=== PATIENT | female | born 1970 | race Caucasian/White ===

== ENCOUNTER 2017-01-02 17:46 | Emergency (ER) | payer BC ==
--- NOTE | 2017-01-02 17:56 | UC ---
Lower Extremity/Ankle HPI - HPI Summary HPI Summary: 46 year old female presents with lateral left ankle pain. - History of Current Complaint Stated Complaint: LEFT ANKLE PAIN Time Seen by Provider: 01/02/17 17:55 Hx Last Menstrual Period: iud - spots on occas - Allergies/Home Medications Allergies/Adverse Reactions: Allergies Allergy/AdvReac Type Severity Reaction Status Date / Time Penicillins Allergy Severe Rash Verified 01/02/17 18:01 Home Medications: Home Medications Atorvastatin* [Lipitor 10 MG*] 10 mg PO BEDTIME 01/02/17 [History Confirmed ] Ibuprofen [Ibuprofen 200 MG] 400 mg PO Q6H PRN 01/02/17 [History Confirmed 01/02] PMH/Surg Hx/FS Hx/Imm Hx - Surgical History Surgical History: Yes Surgery Procedure, Year, and Place: RIGHT FOOT SURGERY TWICE - Family History Known Family History: Positive: None - Social History Alcohol Use: Rare Substance Use Type: None Smoking Status (MU): Never Smoked Tobacco Review of Systems Constitutional: Negative Skin: Negative Eyes: Negative ENT: Negative Respiratory: Negative Cardiovascular: Negative Gastrointestinal: Negative Genitourinary: Negative Motor: Negative Neurovascular: Negative Musculoskeletal: Arthralgia, Myalgia, Other: - left ankle pain Neurological: Negative Psychological: Negative All Other Systems Reviewed And Are Negative: Yes Physical Exam Triage Information Reviewed: Yes Eye Exam: Normal ENT Exam: Normal Dental Exam: Normal Neck exam: Normal Neck: Positive: 1 Respiratory Exam: Normal Cardiovascular Exam: Normal Abdominal Exam: Normal Musculoskeletal: Positive: Edema @, Other: - left ankle pain/swelling Neurological Exam: Normal Psychological Exam: Normal Skin Exam: Normal Lower Extremity Course/Dx - Differential Dx/Diagnosis Provider Diagnoses: left lateral ankle pain Discharge - Discharge Plan Condition: Stable Disposition: HOME Prescriptions: Methylprednisolone [Medrol Dosepak 4 MG*] 4 mg PO .SEE SHYAM INSTRUCTION #1 packet Patient Education Materials: Swollen Joint (ED), Arthralgia (ED), Ankle Sprain (ED) Referrals: Trey Damon MD [Primary Care Provider] - If Needed
[2017-01-02 18:01] VITALS: BP 123/67
--- NOTE | 2017-01-02 18:43 | RAD ---
HISTORY: Left lateral ankle pain COMPARISONS: None VIEWS: 3, Frontal, lateral, and oblique views of the left ankle FINDINGS: BONE DENSITY: Normal. BONES: There is no displaced fracture. There is a small posterior calcaneal enthesophyte. There is a small enthesophyte of the anterior talus. JOINTS: There is no arthropathy. ALIGNMENT: There is no dislocation. SOFT TISSUES: Unremarkable. OTHER FINDINGS: None. IMPRESSION: NO ACUTE OSSEOUS INJURY. IF SYMPTOMS PERSIST, RECOMMEND REPEAT IMAGING.
== END 2017-01-02 18:58 | disposition home or self-care (01) ==
LOC: UCCORT 17:46
DX: M25.572 Pain in left ankle and joints of left foot (principal); Z88.0 Allergy status to penicillin
CPT/HCPCS: 99212; G0463

== ENCOUNTER 2018-05-10 07:54 | Emergency (ER) | payer BC, OTHER ==
--- OUTSIDE RECORDS SUMMARY | 2018-05-10 08:02 | XMS REPORT | Continuity of Care Document ---
:1970 External Reference #:[id number] Author Name Trey Damon M.D. Address [address] [place] [address] Care Team Providers Name Role Phone Trey Damon M.D. Primary Care Physician Unavailable Payers Type Date Identification Numbers Payment Provider Subscriber Effective: 2016 Policy Number: [id number] SHAI CLANCY- Carlos Medina PayID: [id number] [address] [address] [place] [address] Effective: 2011 Policy Number: [id number] SHAI CLANCY- Carlos Medina Expires: 2016 PayID: [id number] [address] [address] [place] [address] Advance Directives Description No Information Available Problems Date Description Provider Status Onset: 10/02/2011 Hyperlipidemia Neto Garcia Active Onset: 10/02/2011 Allergic rhinitis Neto Garcia Active Onset: 10/02/2011 Pure hypercholesterolemia Trey Damon M.D. 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[employer] ETOH Use Rarely consumes alcohol Tobacco Use Reviewed: 01/22/16 Patient has never smoked Smoking Status Reviewed: 04/29/18 Patient has never smoked Exercise Type/Frequency Exercises sporadically Allergies, Adverse Reactions, Alerts Date Description Reaction Status Severity Comments 10/02/2011 Penicillins Active 10/02/2011 Cats Active 10/02/2011 Dogs Active 10/02/2011 Seasonal Active Medications Medication Date Status Form Strength Qnty SIG Indications Ordering Provider Contrave 04/29/ Active Tablets ER 8-90mg 120ta 2 twice a E66.09 Trey 2018 12HR bs day ( stop [place] phentermine os, M.D. ) Flonase 04/01/ Active Suspension 50mcg/Act 9.900 2 puffs each Trey Allergy 2018 ml nare every [place] Relief in the os, M.D. morning Phentermine 04/01/ Active Tablets 37.5mg 30tab 1 by mouth Trey HCL 2018 s every day, [place] 1/2 hour os, M.D. before the meal or 2 hours after the meal Inderal LA 01/11/ Active Caps ER 24HR 80mg 90cap take 1 G43.909 Trey 2018 s capsule by Castellan mouth once os, M.D. daily with food G43.909 Lipitor 04/19/2015 Active Tablets 10mg 90tabs 1 by mouth E78.5 Trey every day Damon, at supper M.D. Proair HFA 03/01/2015 Active Aerosol 108(9 1units 2 puffs Trey 0Base every 4 Damon, ) hours as M.D. mcg/A needed ct Levocetirizine 01/07/2013 Active Tablets 5mg 90tabs take one J31.0 Trey Dihydrochloride tablet by Damon, mouth one M.D. time daily Contrave 03/11/2017 Hx Tablets 8-90m 120tabs Stop This E66.09 Trey - ER 12HR g Med Damon, 04/01/2018 M.D. Phentermine HCL 02/05/2017 Hx Capsules 37.5m 30caps 1 daily Z68.30 Trey - g before Damon, 03/11/2017 breakfast M.D. or 1-2 hours after breakfast Contrave 07/25/2015 Hx Tablets 8-90m 120tabs 2 twice a E66.09 Trey - ER 12HR g day Damon, 02/05/2017 M.D. Symbicort 04/05/2015 Hx Aerosol 160-4 1units 1 puff J45.90 Trey - .5mcg twice a 9 Damon, 05/06/2016 /Act day M.D. Inderal LA 03/15/2015 Hx Caps ER 120mg 30caps 1 daily G43.90 Trey - 24HR 9 [facility], 08/06/2016 M.D. Alpha PD 03/01/2015 Hx Device 1units use daily J45.90 Trey - in in the [address] [place] [address], 05/06/2016 morning as M.D. directed and chart Niacin ER 10/03/2013 Hx Tablets 500mg 90tabs 1 at J45.90 Trey (Antihyperlipidem - ER bedtime ( [address] [place] [address], ) 04/19/2015 with 325 M.D. mg aspirin ) Flaxseed Oil 10/03/2013 Hx Capsules 1000m 90caps 1 daily at J45.90 Trey - g supper 9 [facility], 04/19/2015 M.D. Inderal LA 08/04/2013 Hx Caps ER 80mg 90caps take 1 784.0 Trey - 24HR capsule by Nelson, 03/15/2015 mouth once M.D. daily with food G43.909 Atorvastatin 01/07/2013 - Hx Tablets 10mg 90tabs 1 q od 272.4 Trey Calcium 08/04/2013 Kd Damon Inderal LA 01/07/2013 - Hx Caps ER 24HR 60mg 90caps 1 po qd 784.0 Trey 08/04/2013 Kd Damon Nasonex 01/07/2013 - Hx Suspension 50mcg 3units use 2 J30.9 Trey 04/01/2018 /Act sprays in [facility], each M.D. nostril once daily Ibuprofen 03/12/2012 - Hx Tablets 800mg 45tabs Take One 726.19 Trey 10/03/2013 Tablet By Nelson, Mouth Three M.D. Times Daily Anusol-HC 12/11/2011 - Hx Suppository 25mg 90units 1 after bm 455.6 Trey 10/03/2013 and at Kd Damon Triamcinolone 12/11/2011 - Hx Inhaler 55mcg 3units 2 puffs in 477.9 Trey Acetonide 01/07/2013 /Act each sonya Damon am M.D. Give Xray Disc 12/11/2011 - Hx 477.9 Trey Of RT Knee To 10/03/2013 Nelson Take To Dann Yi (4-20-) Fexofenadine 10/02/2011 - Hx Tablets 180mg 90tabs 1 po qd 477.9 Trey HCL 01/07/2013 Kd Damon Alkalol 10/02/2011 - Hx Solution 16Oz use qid 477.9 Trey 12/11/2011 with skylar Damonator Kd Mobic 10/02/2011 - Hx Tablets 7.5mg 90tabs 1 po qd 719.46 Trey 01/07/2013 Kd Damon Immunizations CPT Code Status Date Vaccine Lot # [id number] Given 01/18/2015 Tdap Vaccine over 7 yrs old Tdap [id number] Given 11/06/2004 Td- Toxoids Absorbed - Adult Vital Signs Date Vital Result Comment 04/29/2018 1:32pm Weight 220.00 lb BP Systolic 150 mmHg 130/70 this am. BP Diastolic 94 mmHg 130/70 this am. 01/11/2018 8:37am Weight 210.00 lb BP Systolic 140 mmHg BP Diastolic 84 mmHg Heart Rate 68 /min Respiratory Rate 16 /min 03/11/2017 5:08pm Weight 181.00 lb BP Systolic 128 mmHg BP Diastolic 80 mmHg 02/05/2017 4:47pm Weight 188.00 lb Height 66.25 inches 5'6.25" BMI (Body Mass Index) 30.1 kg/m2 11/05/2016 8:11am Weight 177.00 lb 08/06/2016 8:08am Weight 176.00 lb BP Systolic 110 mmHg BP Diastolic 72 mmHg 05/06/2016 9:31am Weight 190.00 lb BP Systolic 112 mmHg BP Diastolic 74 mmHg 01/22/2016 8:13am Weight 203.00 lb BP Systolic 100 mmHg BP Diastolic 76 mmHg Height 66.25 inches 5'6.25" Heart Rate 76 /min Body Temperature 98.9 F Respiratory Rate 16 /min BMI (Body Mass Index) 32.5 kg/m2 01/02/2016 4:06pm Weight 204.00 lb BP Systolic 102 mmHg BP Diastolic 82 mmHg 08/29/2015 12:48pm Weight 222.00 lb BP Systolic 100 mmHg BP Diastolic 68 mmHg 07/25/2015 8:13am Weight 240.00 lb BP Systolic 102 mmHg BP Diastolic 74 mmHg 04/19/2015 4:01pm Weight 235.50 lb BP Systolic 110 mmHg BP Diastolic 78 mmHg 04/05/2015 3:25pm Weight 234.00 lb BP Systolic 90 mmHg BP Diastolic 60 mmHg 03/15/2015 3:12pm Weight 234.00 lb BP Systolic 110 mmHg BP Diastolic 74 mmHg 03/01/2015 1:37pm Weight 231.00 lb BP Systolic 102 mmHg BP Diastolic 72 mmHg 01/18/2015 8:20am Weight 227.50 lb BP Systolic 98 mmHg BP Diastolic 72 mmHg Height 66 inches 5'6" Heart Rate 64 /min Body Temperature 98.8 F Respiratory Rate 16 /min BMI (Body Mass Index) 36.7 kg/m2 01/17/2014 8:18am Weight 217.00 lb BP Systolic 112 mmHg BP Diastolic 80 mmHg Height 66 inches 5'6" Heart Rate 68 /min Body Temperature 98.2 F Respiratory Rate 16 /min BMI (Body Mass Index) 35.0 kg/m2 10/03/2013 4:06pm Weight 213.50 lb BP Systolic 98 mmHg BP Diastolic 70 mmHg 08/04/2013 8:08am Weight 213.00 lb BP Systolic 112 mmHg BP Diastolic 74 mmHg 02/09/2013 8:05am Weight 204.00 lb BP Systolic 116 mmHg BP Diastolic 72 mmHg 01/07/2013 8:21am Weight 198.00 lb BP Systolic 102 mmHg BP Diastolic 60 mmHg Height 66.25 inches 5'6.25" Heart Rate 64 /min slightly irregular Body Temperature 98.6 F Respiratory Rate 14 /min BMI (Body Mass Index) 31.7 kg/m2 07/06/2012 8:04am Weight 194.00 lb BP Systolic 140 mmHg BP Diastolic 90 mmHg Height 66.25 inches 5'6.25" BMI (Body Mass Index) 31.1 kg/m2 03/12/2012 8:05am Weight 205.00 lb Height 66 inches 5'6" BMI (Body Mass Index) 33.1 kg/m2 12/11/2011 8:16am Weight 215.00 lb BP Systolic 126 mmHg BP Diastolic 80 mmHg Height 66 inches 5'6" Heart Rate 68 /min Body Temperature 98.3 F Respiratory Rate 16 /min BMI (Body Mass Index) 34.7 kg/m2 10/02/2011 4:10pm Weight 215.00 lb BP Systolic 110 mmHg BP Diastolic 82 mmHg Height 65.50 inches 5'5.50" BMI (Body Mass Index) 35.2 kg/m2 Results Test Date Facility Test Result H/L Range Note [facility] Rapid Strep Negative Negative 1 finding [phone] Molecular Comprehensive 11/04/[address] [facility] [address] Sodium 135 mmol/ L 133-145 Metabolic Panel [phone] Potassium 3.8 mmol/L 3.5-5.0 Chloride 102 mmol/L 101-111 Co2 Carbon Dioxide 28 mmol/L 22-32 Anion Gap 5 mmol/L 2-11 Glucose 77 mg/dL 70-100 Blood Urea Nitrogen 10 mg/dL 6-24 Creatinine 0.88 mg/dL 0.51-0.95 BUN/Creatinine Ratio 11.4 8-20 Calcium 8.9 mg/dL 8.6-10.3 Total Protein 6.8 g/dL 6.4-8.9 Albumin 4.2 g/dL 3.2-5.2 Globulin 2.6 g/dL 2-4 Albumin/Globulin Ratio 1.6 1-3 Total Bilirubin 0.90 mg/dL 0.2-1.0 Alkaline Phosphatase 41 U/L 34-104 Alt 11 U/L 7-52 Ast 14 U/L 13-39 Egfr Non- 68.9 >60 Egfr 88.6 >60 2 CBC 11/04/2016 [facility] White Blood Count 5.3 10^3 /uL 3.5-10.8 [phone] Red Blood Count 4.42 10^6/uL 4.0-5.4 Hemoglobin 13.3 g/dL 12.0-16.0 Hematocrit 40 % 35-47 Mean Corpuscular Volume 90 fL 80-97 Mean Corpuscular Hemoglobin 30 pg 27-31 Mean Corpuscular HGB Conc 34 g/dL 31-36 Red Cell Distribution Width 13 % 10.5-15 Platelet Count 201 10^3/uL 150-450 Mean Platelet Volume 8 um3 7.4-10.4 Laboratory test 11/04/[address] [facility] [address] LDL Cholesterol 128 mg/dL 3 finding [phone] Direct Comprehensive 08/02/2016 [email or web address] Sodium 135 mmol/ L 133-1 Metabolic Panel [phone] Potassium 4.6 mmol/L 3.5-5.0 Chloride 102 mmol/L 101-111 Co2 Carbon Dioxide 29 mmol/L 22-32 Anion Gap 4 mmol/L 2-11 Glucose 88 mg/dL 70-100 Blood Urea Nitrogen 9 mg/dL 6-24 Creatinine 0.86 mg/dL 0.51-0.95 BUN/Creatinine Ratio 10.5 8-20 Calcium 9.4 mg/dL 8.6-10.3 Total Protein 6.9 g/dL 6.4-8.9 Albumin 4.3 g/dL 3.2-5.2 Globulin 2.6 g/dL 2-4 Albumin/Globulin Ratio 1.7 1-3 Total Bilirubin 1.20 mg/dL High 0.2-1.0 Alkaline Phosphatase 40 U/L 34-104 Alt 11 U/L 7-52 Ast 13 U/L 13-39 Egfr Non- 70.7 >60 Egfr 91.0 >60 4 Laboratory test 08/02/2016 [email or web address] LDL Cholesterol 194 mg/dL 5 finding [phone] Direct BMP W/O Egfr 05/03/2016 [email or web address] Sodium 137 mmol/ L 133-14 [phone] Potassium 4.2 mmol/L 3.5-5.0 Chloride 103 mmol/L 101-111 Co2 Carbon Dioxide 28 mmol/L 22-32 Anion Gap 6 mmol/L 2-11 Glucose 85 mg/dL 70-100 Blood Urea Nitrogen 7 mg/dL 6-24 Creatinine 0.72 mg/dL 0.51-0.95 BUN/Creatinine Ratio 9.7 8-20 Calcium 8.7 mg/dL 8.6-10.3 Egfr Non- 87.2 >60 Egfr 112.1 >60 6 Lipid Panel 05/03/[address] [facility] [address] Triglycerides 67 mg/dL 7 [phone] Cholesterol 221 mg/dL 8 HDL Cholesterol 55.9 mg/dL 9 LDL Cholesterol 152 mg/dL 10 CBS W/Automated Diff 12/29/2015 [facility] White Blood 5.5 K/uL 3.1-10.7 [phone] Count Red Blood Count 4.42 M/uL 3.90-5.40 Hemoglobin 13.8 gm/dL 11.6-15.8 Hematocrit 39.1 % 36.0-46.1 Mean Cell Volume 88.5 fl 80.9-99.0 Mean Corpuscular HGB 31.2 pg 25.9-32.7 Mean Corpuscular HGB Conc 35.3 g/dL High 30.8-34.3 Platelet Count 235 K/uL 155-360 Red Cell Distri Width SD 40.8 fl 3-47 Red Cell Distri Width %CV 13.1 % 11.7-14.4 Mean Platelet Volume 10.6 fL 8.9-12.4 Neut% 65.0 % 40.4-72.8 Lymph % 25.8 % 17.0-46.1 Lawrence % 6.9 % 4.3-13.2 Eo% 1.8 % 0.0-6.6 Bas% 0.5 % 0.0-1.1 Neut# 3.60 K/uL 1.8-7.0 Lymph # 1.43 K/uL Low 1.8-7.0 Lawrence # 0.38 K/uL 0.3-0.9 Eos # 0.10 K/uL 0.0-0.5 Baso # 0.03 K/uL 0.0-0.1 Comprehensive Metabolic Panel 12/29/2015 [facility] Glucose 93 mg/dL 74-106 [phone] BUN 9 mg/dL 7-18 Creatinine 0.8 mg/dL 0.6-1.3 Glom Filtration Rate, Estimate >60 mL/min >60 If >60 mL/min >60 11 BUN/Creat 11.2 ratio Sodium 138 mmol/L 136-145 Potassium 3.9 mmol/L 3.5-5.1 Chloride 105 mmol/L 98-107 Carbon Dioxide 30 mmol/L 21-32 Anion Gap 3 mEq/L Low 8-16 Calcium 8.8 mg/dL 8.5-10.1 Total Protein 7.6 g/dL 6.4-8.2 Albumin 3.8 g/dL 3.4-5.0 Globulin 3.8 g/dL 1.9-4.3 Alb/Glob 1.0 ratio Bilirubin,Total 0.7 mg/dL 0.2-1.0 Sgot/Ast 13 U/L Low 15-37 12 SGPT/Alt 26 U/L 12-78 Alkaline Phosphatase 60 U/L 45-117 LDL Cholesterol 07/23/[address] [facility] [address] Triglycerides 129 mg/dL 13 Profile [phone] Cholesterol 253 mg/dL 14 HDL Cholesterol 38.9 mg/dL 15 LDL Cholesterol 188 mg/dL 16 Laboratory test 07/23/[address] [facility] [address] TSH (Thyroid 0.92 0.34-5.60 finding [phone] Stimulating ?IU/mL Horm) Comprehensive 07/23/[address] [facility] [address] Sodium 137 mmol/ L 133-145 Metabolic Panel [phone] Potassium 4.1 mmol/L 3.5-5.0 Chloride 103 mmol/L 101-111 Co2 Carbon Dioxide 26 mmol/L 22-32 Anion Gap 8 mmol/L 2-11 Glucose 116 mg/dL High 70-100 Blood Urea Nitrogen 12 mg/dL 6-24 Creatinine 0.78 mg/dL 0.51-0.95 BUN/Creatinine Ratio 15.4 8-20 Calcium 9.1 mg/dL 8.6-10.3 Total Protein 6.6 g/dL 6.4-8.9 Albumin 4.2 g/dL 3.2-5.2 Globulin 2.4 g/dL 2-4 Albumin/Globulin Ratio 1.8 1-3 Total Bilirubin 0.60 mg/dL 0.2-1.0 Alkaline Phosphatase 46 U/L 34-104 Alt 11 U/L 7-52 Ast 12 U/L Low 13-39 Egfr Non- 79.5 >60 Egfr 102.3 >60 17 CBC W/Automated 07/23/[address] [facility] [address] White Blood 7.8 10^3/uL 3.5-10.8 Diff [phone] Count Red Blood Count 4.36 10^6/uL 4.0-5.4 Hemoglobin 13.3 g/dL 12.0-16.0 Hematocrit 38 % 35-47 Mean Corpuscular Volume 88 fL 80-97 Mean Corpuscular Hemoglobin 31 pg 27-31 Mean Corpuscular HGB Conc 35 g/dL 31-36 Red Cell Distribution Width 14 % 10.5-15 Platelet Count 230 10^3/uL 150-450 Mean Platelet Volume 8 um3 7.4-10.4 Abs Neutrophils 5.6 10^3/uL 1.5-7.7 Abs Lymphocytes 1.5 10^3/uL 1.0-4.8 Abs Monocytes 0.4 10^3/uL 0-0.8 Abs Eosinophils 0.1 10^3/uL 0-0.6 Abs Basophils 0.1 10^3/uL 0-0.2 Abs Nucleated RBC 0 10^3/uL Granulocyte % 72.7 % 38-83 Lymphocyte % 19.3 % Low 25-47 Monocyte % 5.4 % 1-9 Eosinophil % 1.9 % 0-6 Basophil % 0.7 % 0-2 Nucleated Red Blood Cells % 0 LDL Cholesterol 01/17/2014 [facility] Cholesterol 250 mg/dL High 120-200 Profile [phone] Triglycerides 65 mg/dL 16-231 HDL Cholesterol 54 mg/dL 29-83 LDL-Cholesterol 183 mg/dL 62-185 CBS W/Automated Diff 01/17/2014 [facility] White Blood 9.6 K/uL 3.1-10.7 [phone] Count Red Blood Count 4.49 M/uL 3.90-5.40 Hemoglobin 14.1 gm/dL 11.6-15.8 Hematocrit 39.3 % 36.0-46.1 Mean Cell Volume 87.5 fl 80.9-99.0 Mean Corpuscular HGB 31.4 pg 25.9-32.7 Mean Corpuscular HGB Conc 35.9 g/dL High 30.8-34.3 Platelet Count 253 K/uL 155-360 Red Cell Distri Width SD 39.8 fl 3-47 Red Cell Distri Width %CV 12.7 % 11.7-14.4 Mean Platelet Volume 10.4 fL 8.9-12.4 Neut% 79.7 % High 40.4-72.8 Lymph % 15.3 % Low 17.0-46.1 Lawrence % 4.3 % 4.3-13.2 Eo% 0.5 % 0.0-6.6 Bas% 0.2 % 0.0-1.1 Neut# 7.62 K/uL High 1.0-7.0 Lymph # 1.46 K/uL 0.8-3.4 Lawrence # 0.41 K/uL 0.3-0.9 Eos # 0.05 K/uL 0.0-0.5 Baso # 0.02 K/uL 0.0-0.1 Throat-Beta [facility]09/2014 [email or web address] Throat Beta Strep (SEE NOTE) 18 Strept [phone] Culture LDL Cholesterol 09/08/2013 [email or web address] Triglycerides 89 mg/dL 19, 20 Profile [phone] Cholesterol 233 mg/dL 21 HDL Cholesterol 45.8 mg/dL 22 LDL Cholesterol 169 mg/dL 23 Throat-Beta Strept 07/18/2013 [email or web address] Throat Beta (SEE NOTE) 24 [phone] Strep Culture Laboratory test 02/05/2013 [facility] Vitamin 33.5 ng/mL 30.0-1 25 finding [phone] D,25-Hydroxy 00.0 CBC 02/05/2013 [facility] White Blood 6.0 K/uL 3.1-10 [phone] Count .7 Red Blood Count 4.24 M/uL 3.90-5.40 Hemoglobin 13.3 gm/dL 11.6-15.8 Hematocrit 37.5 % 36.0-46.1 Mean Cell Volume 88.4 fl 80.9-99.0 Mean Corpuscular HGB 31.4 pg 25.9-32.7 Mean Corpuscular HGB Conc 35.5 g/dL High 30.8-34.3 Platelet Count 228 K/uL 155-360 Red Cell Distri Width %CV 12.8 % 11.7-14.4 Mean Platelet Volume 9.6 fL 8.9-12.4 Laboratory test 02/05/2013 [facility] Thyroid Stim 0.75 uIU/mL 0.49-4.67 finding [phone] Hormone LDL Cholesterol 02/05/2013 [facility] Cholesterol 187 mg/dL 120- 200 Profile [phone] Triglycerides 100 mg/dL 16-231 HDL Cholesterol 46 mg/dL 29-83 LDL-Cholesterol 121 mg/dL 62-185 Comprehensive Metabolic Panel 02/05/2013 [facility] Glucose 85 mg/dL 76-115 [phone] BUN 10 mg/dL 5-23 Creatinine 0.9 mg/dL 0.5-1.4 Glom Filtration Rate, Estimate >60 mL/min >60 If >60 mL/min >60 26 BUN/Creat 11.1 ratio Sodium 139 mmol/L 136-145 Potassium 3.8 mmol/L 3.5-5.1 Chloride 104 mmol/L 98-107 Carbon Dioxide 30 mEq/L High 18-29 Anion Gap 9 mEq/L 8-16 Calcium 9.0 mg/dL 8.5-10.1 Total Protein 7.3 g/dL 6.3-8.0 Albumin 3.9 g/dL 3.5-5.0 Globulin 3.4 g/dL 1.9-4.3 Alb/Glob 1.1 ratio Bilirubin,Total 0.9 mg/dL 0.2-1.2 Sgot/Ast 12 U/L Low 16-40 SGPT/Alt 27 U/L Low 30-65 Alkaline Phosphatase 61 U/L 50-136 LDL Cholesterol 12/28/2012 [facility] Cholesterol 225 mg/dL High 120-200 Profile [phone] Triglycerides 79 mg/dL 16-231 HDL Cholesterol 47 mg/dL -83 LDL-Cholesterol 162 mg/dL 62-185 LDL Cholesterol 06/26/2012 [facility] Cholesterol 215 mg/dL High 120-200 Profile [phone] Triglycerides 78 mg/dL 16-231 HDL Cholesterol 42 mg/dL 29-83 LDL-Cholesterol 157 mg/dL 62-185 CBS W/Automated Diff 12/11/2011 [facility] White Blood 5.8 K/uL 3.1-10.7 [phone] Count Red Blood Count 4.68 M/uL 3.90-5.40 Hemoglobin 14.0 gm/dL 11.6-15.8 Hematocrit 40.7 % 36.0-46.1 Mean Cell Volume 87.0 fl 80.9-99.0 Mean Corpuscular HGB 29.9 pg 25.9-32.7 Mean Corpuscular HGB Conc 34.4 g/dL High 30.8-34.3 Platelet Count 269 K/uL 155-360 Red Cell Distri Width SD 40.5 fl 3-47 Red Cell Distri Width %CV 13.2 % 11.7-14.4 Mean Platelet Volume 10.3 fL 8.9-12.4 Neut% 69.4 % 40.4-72.8 Lymph % 23.5 % 17.0-46.1 Lawrence % 5.2 % 4.3-13.2 Eo% 1.4 % 0.0-6.6 Bas% 0.5 % 0.0-1.1 Neut# 4.04 K/uL 1.0-7.0 Lymph # 1.37 K/uL 0.8-3.4 Lawrence # 0.30 K/uL 0.3-0.9 Eos # 0.08 K/uL 0.0-0.5 Baso # 0.03 K/uL 0.0-0.1 Laboratory test 12/11/2011 [facility] Thyroid Stim 0.84 uIU/mL 0.49-4.67 finding [phone] Hormone Comprehensive 12/11/2011 [facility] Glucose 85 mg/dL 76-115 Metabolic Panel [phone] BUN 9 mg/dL 5-23 Creatinine 0.9 mg/dL 0.5-1.4 Glom Filtration Rate, Estimate >60 mL/min >60 If >60 mL/min >60 27 BUN/Creat 10.0 ratio Sodium 141 mmol/L 136-145 Potassium 4.0 mmol/L 3.5-5.1 Chloride 105 mmol/L 98-107 Carbon Dioxide 31 mEq/L High 18-29 Anion Gap 9 mEq/L 8-16 Calcium 9.0 mg/dL 8.5-10.1 Total Protein 8.0 g/dL 6.3-8.0 Albumin 4.1 g/dL 3.5-5.0 Globulin 3.9 g/dL 1.9-4.3 Alb/Glob 1.1 ratio Bilirubin,Total 0.9 mg/dL 0.2-1.2 Sgot/Ast 11 U/L Low 16-40 SGPT/Alt 26 U/L Low 30-65 Alkaline Phosphatase 49 U/L Low 50-136 Laboratory test 12/11/2011 [facility] Vitamin 35.3 30.0-100.0 28 finding [phone] D,25-Hydroxy ng/mL LDL Cholesterol 12/11/2011 [facility] Cholesterol 232 High 120-200 Profile [phone] mg/dL Triglycerides 165 mg/dL 16-231 HDL Cholesterol 43 mg/dL 29-83 LDL-Cholesterol 156 mg/dL 62-185 Xray 10/03/2011 [facility] Jaida Xray Rt Knee < pending> [address], [place] [id number] [phone] 1 [employer]rentice: [id number] 2 Because ethnic data is not always readily available, this report includes an eGFR for both -Americans and non- Americans. The National Kidney Disease Education Program (NKDEP) does not endorse the use of the MDRD equation for patients that are not between the ages of 18 and 70, are , have extremes of body size, muscle mass, or nutritional status, or are non- or non-. According to the National Kidney Foundation, irrespective of diagnosis, the stage of the disease is based on the level of kidney function: Stage Description GFR(mL/min/1.73 m(2)) 1 Kidney damage with normal or decreased GFR 90 2 Kidney damage with mild decrease in GFR 60-89 3 Moderate decrease in GFR 30-59 4 Severe decrease in GFR 15-29 5 Kidney failure <15 (or dialysis) 3 Desirable: <100 mg/dL Near Optimal: 100-129 mg/dL Borderline High: 130-159 mg/dL High: 160-189 mg/dL Very High: >189 mg/dL 4 Because ethnic data is not always readily available, this report includes an eGFR for both -Americans and non- Americans. The National Kidney Disease Education Program (NKDEP) does not endorse the use of the MDRD equation for patients that are not between the ages of 18 and 70, are , have extremes of body size, muscle mass, or nutritional status, or are non- or non-. According to the National Kidney Foundation, irrespective of diagnosis, the stage of the disease is based on the level of kidney function: Stage Description GFR(mL/min/1.73 m(2)) 1 Kidney damage with normal or decreased GFR 90 2 Kidney damage with mild decrease in GFR 60-89 3 Moderate decrease in GFR 30-59 4 Severe decrease in GFR 15-29 5 Kidney failure <15 (or dialysis) 5 Desirable: <100 mg/dL Near Optimal: 100-129 mg/dL Borderline High: 130-159 mg/dL High: 160-189 mg/dL Very High: >189 mg/dL 6 Because ethnic data is not always readily available, this report includes an eGFR for both -Americans and non- Americans. The National Kidney Disease Education Program (NKDEP) does not endorse the use of the MDRD equation for patients that are not between the ages of 18 and 70, are , have extremes of body size, muscle mass, or nutritional status, or are non- or non-. According to the National Kidney Foundation, irrespective of diagnosis, the stage of the disease is based on the level of kidney function: Stage Description GFR(mL/min/1.73 m(2)) 1 Kidney damage with normal or decreased GFR 90 2 Kidney damage with mild decrease in GFR 60-89 3 Moderate decrease in GFR 30-59 4 Severe decrease in GFR 15-29 5 Kidney failure <15 (or dialysis) 7 Desirable <150 Borderline high 150-199 High 200-499 Very High >500 8 Desirable <200 Borderline high 200-239 High >239 9 Low <40 Desirable: 40-60 High: >60 10 Desirable: <100 mg/dL Near Optimal: 100-129 mg/dL Borderline High: 130-159 mg/dL High: 160-189 mg/dL Very High: >189 mg/dL 11 Note: Persistent reduction for 3 months or more in an eGFR <60 mL/min/1.73 m2 defines CKD. Patients with eGFR values >/=60 mL/min/1.73 m2 may also have CKD if evidence of persistent proteinuria is present. The original MDRD equation for estimated GFR is not valid for patients less than 18 years of age. Additional information may be found at www.kdoqi.org. 12 Values below the stated reference ranges of AST and ALT can be seen in normal populations. Clinical correlation is suggested. 13 Desirable <150 Borderline high 150-199 High 200-499 Very High >500 14 Desirable <200 Borderline high 200-239 High >239 15 Low <40 Desirable: 40-60 High: >60 16 Desirable: <100 mg/dL Near Optimal: 100-129 mg/dL Borderline High: 130-159 mg/dL High: 160-189 mg/dL Very High: >189 mg/dL 17 Because ethnic data is not always readily available, this report includes an eGFR for both -Americans and non- Americans. The National Kidney Disease Education Program (NKDEP) does not endorse the use of the MDRD equation for patients that are not between the ages of 18 and 70, are , have extremes of body size, muscle mass, or nutritional status, or are non- or non-. According to the National Kid[employer] Foundation, irrespective of diagnosis, the stage of the disease is based on the level of kidney function: Stage Description GFR(mL/min/1.73 m(2)) 1 Kidney damage with normal or decreased GFR 90 2 Kidney damage with mild decrease in GFR 60-89 3 Moderate decrease in GFR 30-59 4 Severe decrease in GFR 15-29 5 Kidney failure <15 (or dialysis) 18 RUN DATE: 01/12/14 [facility] LAB LIVE PAGE 1 RUN TIME: [address] [place] [id number] Specimen Inquiry Name: GRISELDAJANEL M : [address]: Dilan Stokes MD Acct: [id number] Unit: [id number] AGE: 43 Location: [facility] Re01/09/14 SEX: F Status: DEP ER SPEC: [id number] MERYL: 01/09/[address] [facility] [address]: Dilan Stokes MD REQ: [id number] RECD: 01/09/14 STATUS: DENA MCBRIDE DR: [facility] Trey Damon MD _ SOURCE: THROAT SPDESC: ORDERED: Throat Beta Str Procedure Result Verified Site Throat Beta Strep Culture Final 01/12/14- 7859 ML Organism 1 Negative Group A Strep END OF REPORT * ML=Testing performed at Main Lab DEPARTMENT OF PATHOLOGY, [address] [place] [address] Rodrigo Millan M.D. Director [facility] # [id number] FASTING 20 Desirable <150 Borderline high 150-199 High 200-499 Very High >500 21 Desirable <200 Borderline high 200-239 High >239 22 Low <40 Desirable: 40-60 High: >60 23 Desirable <100 Near Optimal 100-129 Borderline high 130-159 High 160-189 Very High >189 24 RUN DATE: 07/21/13 [facility] LAB LIVE PAGE 1 RUN TIME: [address] [place] [id number] Specimen Inquiry Name: JANEL MEDINA : [address]: Dilan Stokes MD Acct: [id number] Unit: [id number] AGE: 43 Location: [facility] Re07/18/13 SEX: F Status: DEP ER SPEC: [id number] MERYL: 07/18/13-[address] [facility] [address]: Emily JOHNSTON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
[2018-05-10] MEDS ORDERED: Ibuprofen TAB* 600 MG PO ONE (08:07)
[2018-05-10] MEDS ORDERED: Tetan/Diph/Pertus SYR(Tdap)* 0.5 ML SYR(BOOSTRIX) use SYR IM ONE (08:07)
--- NOTE | 2018-05-10 08:07 | UC ---
Minor Trauma HPI - HPI Summary HPI Summary: 48 yo female presents s/p fall. She tells me that she was going into work about 20min [employer] when she slipped on the wet ground and fell. She landed on her LEFT elbow, RIGHT knee, and RIGHT wrist. She did not hit her head. She was able to get to her feet and ambulate. She went to the nurse's office who cleansed her wounds and applied a band-aid. Pt then came to . Currently she has pain in the above mentioned areas. She is ambulating without assistance or difficulty. Denies numbness, tingling, or decreased ROM. Unsure date of last tetanus. - History of Current Complaint Stated Complaint: L ELBOW, R KNEE INJURY Time Seen by Provider: 05/10/18 08:06 Hx Obtained From: Patient Hx Last Menstrual Period: iud - spots on occas Onset/Duration: Sudden Onset Severity Initially: Moderate Severity Currently: Moderate Pain Intensity: 5 Pain Scale Used: 0-10 Numeric - Allergies/Home Medications Allergies/Adverse Reactions: Allergies Allergy/AdvReac Type Severity Reaction Status Date / Time Penicillins Allergy Rash Verified 05/10/18 08:07 PMH/Surg Hx/FS Hx/Imm Hx Respiratory History: Asthma - Surgical History Surgical History: Yes Surgery Procedure, Year, and Place: RIGHT FOOT SURGERY TWICE - Family History Known Family History: Positive: Cardiac Disease Family History: Dyslipidemia - Social History Occupation: Employed Full-time Lives: With Family Alcohol Use: Rare Substance Use Type: None Smoking Status (MU): Never Smoked Tobacco Review of Systems All Other Systems Reviewed And Are Negative: Yes Constitutional: Positive: Negative Skin: Positive: Other - Abrasion right knee and wrist. Abrasion left elbow Respiratory: Positive: Negative Cardiovascular: Positive: Negative Gastrointestinal: Positive: Negative Neurovascular: Positive: Negative Musculoskeletal: Positive: Other: - Right knee and wrist pain. Left elbow pain Neurological: Positive: Negative Psychological: Positive: Negative Physical Exam - Summary Physical Exam Summary: GENERAL: NAD. WDWN. No pain distress. SKIN: Superficial abrasion to right volar wrist - scant. Superficial abrasion to right anterior knee - scant. Superficial abrasion to left elbow - mild. No sites are actively bleeding or with any gaping laceration/wound. Wounds appear clean. CHEST: No accessory muscle use. Breathing comfortably and in no distress. CV: Pulses intact radial and ulnar b/l.. Cap refill <2seconds MSK: RIGHT WRIST: TTP over area of abrasion. FROM without pain. Strength 5/5 including assistant merchandiser strength. No snuffbox tenderness. LEFT ELBOW: TTP at area of abrasion. FROM with mild pain during supination. No supracondylar tenderness. RIGHT KNEE: Mild TTP at area of abrasion. FROM with mild pain during full flexion. Mild edema. NEURO: Alert. Sensations intact hands and all fingers. Sensations intact B/L LEs. PSYCH: Age appropriate behavior. Triage Information Reviewed: Yes Vital Signs: Vital Signs: Temp Pulse Resp BP Pulse Ox 100.2 F 87 20 154/87 99 05/10/18 08:08 05/10/18 08:08 05/10/18 08:08 05/10/18 08:08 05/10/18 08:08 Vital Signs Reviewed: Yes Minor Trauma Course/Dx - Course Course Of Treatment: In the clinic the pt's wounds were cleansed, tdap updated, and she was given ibuprofen for her discomfort. XR of left elbow: IMPRESSION: NO ACUTE OSSEOUS INJURY. IF SYMPTOMS PERSIST, RECOMMEND REPEAT IMAGING. Suspect contusion and abrasions to left elbow, right wrist, and right knee due to fall at work. Discussed with pt that due to her work related injury and out of work for today and tomorrow - she will need to f/u with Dr. Mclain of [facility] or her PCP to be cleared to return to work. Advised to RICE and continue tylenol/ ibuprofen for discomfort. Pt voiced understanding and is in agreement with plan. - Differential Dx/Diagnosis Provider Diagnoses: Abrasion right wrist, right knee, left elbow. Fall Discharge - Sign-Out/Discharge Documenting (check all that apply): Patient Departure All imaging exams completed and their final reports reviewed: Yes - Discharge Plan Condition: Stable Disposition: HOME Patient Education Materials: Abrasion (ED) Forms: *Work Release Referrals: Trey Damon MD [Primary Care Provider] - Mor Mclain MD [Medical Doctor] - As Soon As Possible Additional Instructions: If you develop a fever, shortness of breath, chest pain, new or worsening symptoms - please call your PCP or go to the ED. Your blood pressure was high at todays visit. Please see your primary provider within 4 weeks for recheck and re-evaluation. 1) Please keep the wounds bandaged with a band-aid until well healed 2) Your tetanus shot was updated today 3) Please follow up with Dr. Mclain of Occup[facility] at the number below for further evaluation regarding your work related injury. - Billing Disposition and Condition Condition: STABLE Disposition: Home
[2018-05-10 08:16] VITALS: BP 154/87
== END 2018-05-10 08:55 | disposition home or self-care (01) ==
LOC: UCEAST 07:54
DX: S60.811A Abrasion of right wrist, initial encounter (principal); S80.211A Abrasion, right knee, initial encounter; S50.312A Abrasion of left elbow, initial encounter; W01.0XXA Fall on same level from slipping, tripping and stumbling without subsequent striking against object, initial encounter; Y93.01 Activity, walking, marching and hiking; Y92.9 Unspecified place or not applicable; Z88.0 Allergy status to penicillin
CPT/HCPCS: 90471; 90715; 99212; A9270-GY; G0463

== ENCOUNTER 2019-04-21 16:11 | Emergency (ER) | payer BC, OTHER ==
--- OUTSIDE RECORDS SUMMARY | 2019-04-21 16:16 | XMS REPORT | Continuity of Care Document ---
:1970 External Reference #:[id number] Author Name Ragini Zuniga M.D. (transmitted by agent of provider Estee Reyes) Address [address] [place] [address] [place] [address] Care Team Providers Name Role Phone Bret Bob RPA - Physician Care Team Information Clinic Cma Poem Writer Problems Active Problems Provider Date Hemorrhoids without complication Onset: 12/11/2011 Hyperlipidemia Onset: 10/02/2011 Allergic rhinitis Onset: 10/02/2011 Pure hypercholesterolemia Onset: 10/02/2011 Social History Type Date Description Comments Sex Unknown ETOH Use Rarely consumes alcohol Tobacco Use Start: Unknown Patient has never smoked Smoking Status Reviewed: 04/06/19 Patient has never smoked Exercise Type/Frequency Exercises sporadically Allergies, Adverse Reactions, Alerts Active Allergies Reaction Severity Comments Date Penicillins 06/18/2018 Cats 06/18/2018 Dogs 06/18/2018 Seasonal 06/18/2018 Medications Active Medications SIG Qnty Indications Ordering Date Provider Tennis Elbow Strap use below the 1units M77.01 [facility] Flonase Allergy Relief 2 puffs each 9.900units Trey 04/01/2018 nare every in MD Nelson 50mcg/Act Suspension the morning Lipitor 1 by mouth 90tabs E78.5 Trey 04/19/2015 10mg Tablets every day at MD Nelson supper Proair HFA 2 puffs every 1units Trey 03/01/2015 108(90Base) 4 hours as MD Nelson mcg/Act Aerosol needed Levocetirizine take one 90tabs J31.0 Trey 01/07/2013 Dihydrochloride tablet by MD Nelson 5mg mouth one time Tablets daily History Medications Ibuprofen 1 by mouth 60tabs M77.01 Trey Damon, 11/01/2018 - 800mg three times a MD 04/05/2019 Tablets day Immunizations CPT Code Status Date Vaccine Lot # [id number] Given 01/18/2015 Tdap - Tetanus/Diptheria/Acellular Pertussis 37500 Given 11/06/2004 Tetanus And Diptheria (Td) For Adult Use Preservative Free Vital Signs Date Vital Result Comment 04/06/2019 9:17am Height 67 inches 5'7" Weight 248.00 lb Heart Rate 84 /min BP Systolic 134 mmHg BP Diastolic 86 mmHg BMI (Body Mass Index) 38.8 kg/m2 11/01/2018 8:47am Weight 236.00 lb BP Systolic 138 mmHg BP Diastolic 82 mmHg Results Description No Information Available Procedures Date Code Description Status 04/06/2019 15584 Inject/Drain Joint/Bursa Intermediate W/O US Completed 09/02/2018 [id number] Mammogram Completed 09/01/2017 [id number] Mammogram Completed 04/15/2017 [id number] Diabetic Retinal Eye Exam Completed 07/12/2002 [id number] Colonoscopy Completed Medical Devices Description No Information Available Encounters Type Date Location Provider Dx Diagnosis Office Visit 11/01/2018 [facility] Trey G43.009 Migraine w/o aura, 9:15a MD Nelson not intractable, w/o status migrainosus M77.01 Medial epicondylitis, right elbow E78.5 Hyperlipidemia, unspecified J30.9 Allergic rhinitis, unspecified Assessments Date Code Description Provider 04/06/2019 M77.12 Lateral epicondylitis, left elbow Ragini Zuniga M.D. 11/01/2018 G43.009 Migraine without aura, not intractable, Trey Damon MD without status migra 11/01/2018 M77.01 Medial epicondylitis, right elbow Trey Damon MD 11/01/2018 E78.5 Hyperlipidemia, unspecified Trey Damon MD 11/01/2018 J30.9 Allergic rhinitis, unspecified Trey Damon MD Plan of Treatment Future Appointment(s):04/25/2019 11:30 am - rTey Damon MD at [facility]04/06/2019 - Ragini Zuniga M.D.M77.12 Lateral epicondylitis, left elbowFollow up:Follow up: As needed Functional Status Description No Information Available Mental Status Description No Information Available Referrals Description No Information Available
[2019-04-21 16:21] VITALS: BP 133/86
--- NOTE | 2019-04-21 16:31 | UC ---
Throat Pain/Nasal Rolando HPI - HPI Summary HPI Summary: 48 yo with a one week hx of sore throat with mild dysphagia, with fatigue and subjective fever. Her 25 yo daughter was treated for strep last week. No cough. Mild headache. - History of Current Complaint Chief Complaint: UCRespiratory Stated Complaint: SORE THROAT Time Seen by Provider: 04/21/19 16:23 Hx Obtained From: Patient Hx Last Menstrual Period: iud - spots on occas Onset/Duration: Gradual Onset, Lasting Days Severity: Mild Pain Intensity: 5 Cough: None Associated Signs & Symptoms: Positive: Dysphagia - Epiglottits Risk Factors Epiglottis Risk Factors: Negative - Allergies/Home Medications Allergies/Adverse Reactions: Allergies Allergy/AdvReac Type Severity Reaction Status Date / Time Penicillins Allergy Rash Verified 04/21/19 16:21 Home Medications: Home Medications Ibuprofen TAB* [Motrin TAB* 800 MG] 800 mg PO Q6HR 04/21/19 [History Confirmed 04/21/19] PMH/Surg Hx/FS Hx/Imm Hx Previously Healthy: Yes - overweight - Surgical History Surgical History: Yes Surgery Procedure, Year, and Place: RIGHT FOOT SURGERY TWICE - Family History Known Family History: Positive: Other - Father CA lung, mother CA lung and cervix. Family History: Dyslipidemia - Social History Occupation: Employed Full-time Lives: With Family Alcohol Use: Rare Substance Use Type: None Smoking Status (MU): Never Smoked Tobacco Review of Systems All Other Systems Reviewed And Are Negative: Yes Constitutional: Positive: Fatigue Skin: Positive: Negative Eyes: Positive: Negative ENT: Positive: Negative, Sore Throat. Negative: Ear Ache, Sinus Congestion Respiratory: Positive: Negative Cardiovascular: Positive: Negative Gastrointestinal: Positive: Negative Genitourinary: Positive: Negative Motor: Positive: Negative Neurovascular: Positive: Negative Musculoskeletal: Positive: Negative Neurological: Positive: Negative Psychological: Positive: Negative Is Patient Immunocompromised?: No Physical Exam Triage Information Reviewed: Yes Appearance: Well-Appearing, Obese Vital Signs: Initial Vital Signs Temp 99.7 F 04/21/19 16:16 Pulse 76 04/21/19 16:16 Resp 16 04/21/19 16:16 BP 133/86 04/21/19 16:16 Pulse Ox 96 04/21/19 16:16 Eyes: Positive: Conjunctiva Clear ENT: Positive: Pharyngeal erythema, TMs normal. Negative: Tonsillar swelling, Tonsillar exudate Dental Exam: Normal Respiratory: Positive: Lungs clear, Normal breath sounds Cardiovascular: Positive: RRR, No Murmur Musculoskeletal Exam: Normal Neurological Exam: Normal Neurological: Positive: Alert Psychological Exam: Normal Skin Exam: Normal Diagnostics - Laboratory Lab Results: rapid strep negative. Throat Pain/Nasal Course/Dx - Course Course Of Treatment: continue symptomatic treatment of viral pharyngitis. - Differential Dx/Diagnosis Differential Diagnosis/HQI/PQRI: Pharyngitis, Sinusitis, Tonsillitis Provider Diagnosis: Pharyngitis Discharge ED - Sign-Out/Discharge Documenting (check all that apply): Patient Departure All imaging exams completed and their final reports reviewed: No Studies - Discharge Plan Condition: Good Disposition: HOME Patient Education Materials: Pharyngitis (ED) Referrals: Trey Damon MD [Primary Care Provider] - Additional Instructions: Continue sympotmatic treatment of the sore throat with ibuprofen or acetaminophen, warm water and salt gargling, lozenges as needed. - Billing Disposition and Condition Condition: GOOD Disposition: Home
== END 2019-04-21 17:10 | disposition home or self-care (01) ==
LOC: UCEAST 16:11
DX: J02.9 Acute pharyngitis, unspecified (principal); R53.83 Other fatigue; Z88.0 Allergy status to penicillin
CPT/HCPCS: 87651; 99212; G0463

== ENCOUNTER 2019-08-31 15:59 | Emergency (ER) | payer BC ==
[2019-08-31 16:14] VITALS: BP 141/86
--- NOTE | 2019-08-31 16:32 | UC ---
Throat Pain/Nasal Rolando HPI - HPI Summary HPI Summary: 49-year-old woman comes in with a chief complaint of a sore throat.'s been going on for about 8 days. Her had influenza when the sore throat started. Does have some rhinorrhea. Pains worse with swallowing. She has been using throat lozenges which to help some with the pain. Having some chills no fevers measured. No shortness of breath. - History of Current Complaint Chief Complaint: UCGeneralIllness Stated Complaint: SORE THROAT Time Seen by Provider: 08/31/19 16:15 Hx Last Menstrual Period: iud - spots on occas Pain Intensity: 2 - Allergies/Home Medications Allergies/Adverse Reactions: Allergies Allergy/AdvReac Type Severity Reaction Status Date / Time Penicillins Allergy Rash Verified 08/31/19 16:14 Home Medications: Home Medications Levocetirizine Dihydrochl 5 mg PO DAILY 07/18/13 [History Confirmed 08/31/19] Mirena (NF) 1 udc VAGINAL SEE INSTRUCTIONS 07/18/13 [History Confirmed 08/31/19] Albuterol HFA INHALER* [Ventolin HFA Inhaler*] 1 puff INH Q4H PRN 07/19/15 [ History Confirmed 08/31/19] Ibuprofen TAB* [Motrin TAB* 800 MG] 800 mg PO Q6HR 04/21/19 [History Confirmed 08/31/19] Aspirin/Acetaminophen/Caffeine [Excedrin Migraine Caplet] 1 each PO ONCE PRN [History Confirmed 08/31/19] DOXYcycline CAP(*) [DOXYcycline 100MG CAP(*)] 100 mg PO BID #20 cap 08/31/19 [Rx ] PMH/Surg Hx/FS Hx/Imm Hx Previously Healthy: Yes - Surgical History Surgical History: Yes Surgery Procedure, Year, and Place: RIGHT FOOT SURGERY TWICE - Family History Known Family History: Positive: None, Cardiac Disease, Other - Father CA lung, mother CA lung and cervix. Family History: Dyslipidemia - Social History Alcohol Use: Rare Substance Use Type: None Smoking Status (MU): Never Smoked Tobacco Review of Systems All Other Systems Reviewed And Are Negative: Yes Constitutional: Positive: Other - SEE HPI Skin: Positive: Negative Eyes: Positive: Negative ENT: Positive: Sore Throat, Nasal Discharge Respiratory: Positive: Negative Cardiovascular: Positive: Negative Gastrointestinal: Positive: Negative Motor: Positive: Negative Neurovascular: Positive: Negative Musculoskeletal: Positive: Negative Neurological/Mental Status: Positive: Negative Psychological: Positive: Negative Is Patient Immunocompromised?: No Physical Exam Triage Information Reviewed: Yes Appearance: No Pain Distress, Well-Nourished, Ill-Appearing - MILD Vital Signs: Initial Vital Signs Temp 100.0 F 08/31/19 16:10 Pulse 102 08/31/19 16:10 Resp 18 08/31/19 16:10 BP 141/86 08/31/19 16:10 Pulse Ox 99 08/31/19 16:10 Vital Signs Reviewed: Yes Eye Exam: Normal Eyes: Positive: Conjunctiva Clear ENT: Positive: Pharyngeal erythema, Nasal congestion, TMs normal Neck: Positive: Supple Respiratory: Positive: Lungs clear, Normal breath sounds, No respiratory distress Cardiovascular: Positive: RRR Musculoskeletal: Positive: Strength Intact, ROM Intact Neurological: Positive: Alert, Muscle Tone Normal Psychological: Positive: Age Appropriate Behavior Skin Exam: Normal Throat Pain/Nasal Course/Dx - Course Course Of Treatment: DISCUSSED VIRAL VERSES BACTERIAL INFECTIONS AND THE ROLE OF ANTIBIOTICS. THE PATIENT PREFERS TO BE ON ANTIBIOTICS AT THIS TIME. - Differential Dx/Diagnosis Provider Diagnosis: Pharyngitis Discharge ED - Sign-Out/Discharge Documenting (check all that apply): Patient Departure All imaging exams completed and their final reports reviewed: No Studies - Discharge Plan Condition: Stable Disposition: HOME Prescriptions: DOXYcycline CAP(*) [DOXYcycline 100MG CAP(*)] 100 mg PO BID #20 cap Patient Education Materials: Pharyngitis (ED) Referrals: Trey Damon MD [Primary Care Provider] - Additional Instructions: FOLLOW UP WITH YOUR DOCTOR IF NOT COMPLETELY IMPROVED. GET REEVALUATED IF NOT IMPROVING OR WORSE OR ANY QUESTIONS OR CONCERNS. - Billing Disposition and Condition Condition: STABLE Disposition: Home
== END 2019-08-31 16:39 | disposition home or self-care (01) ==
LOC: UCCORT 15:59
DX: J02.9 Acute pharyngitis, unspecified (principal); Z88.0 Allergy status to penicillin; Z79.82 Long term (current) use of aspirin
CPT/HCPCS: 99212; G0463